=== PATIENT | female | born 1980 | race Caucasian/White ===

== ENCOUNTER 2022-10-11 13:29 | Emergency (ER) | payer BC ==
[~2022-10-11] VITALS: Ht 162.6 cm; Wt 57.8 kg
[2022-10-11 17:14] LABS: BASO % 0.1 % (0.0-1.0); HEMATOCRIT 43.1 % (36.0-47.0); HEMOGLOBIN 14.8 g/dl (12.0-15.5); LYMPH % 10.3 % (24.0-44.0); MEAN CORPUSCULAR HEMOGLOBIN 31.6 pg (27.0-33.0); MEAN CORPUSCULAR HGB CONC 34.3 g/dl (32.0-36.5); MEAN CORPUSCULAR VOLUME 91.9 fl (80.0-96.0); MONO # 0.3 10^3/uL (0.0-0.8); MONO % 3.7 % (2.0-8.0); NEUTROPHILS # 7.8 10^3/uL (1.5-8.5); NEUTROPHILS % 85.1 % (36.0-66.0); PLATELET COUNT, AUTOMATED 250 10^3/uL (150-450); RED BLOOD COUNT 4.69 10^6/uL (4.00-5.40); WHITE BLOOD COUNT 9.2 10^3/uL (4.0-10.0)
[2022-10-11 17:41] LABS: ALBUMIN 4.7 G/DL (3.2-5.2); ALKALINE PHOSPHATASE 47 U/L (46-116); ALT/SGPT 15 U/L (7.0-40); AST/SGOT 12 U/L (<34); BILIRUBIN,DIRECT 0.6 MG/DL (<0.4); BILIRUBIN,TOTAL 2.1 MG/DL (0.3-1.2); BLOOD UREA NITROGEN 18 MG/DL (9-23); CALCIUM LEVEL 9.5 MG/DL (8.5-10.1); CARBON DIOXIDE LEVEL 26 MMOL/L (20-31); CHLORIDE LEVEL 105 MMOL/L (98-107); CREATININE FOR GFR 0.66 MG/DL (0.55-1.30); GLOMERULAR FILTRATION RATE > 60.0 (>58); GLUCOSE, FASTING 109 MG/DL (60-100); POTASSIUM SERUM 4.3 MMOL/L (3.5-5.1); SODIUM LEVEL 141 MMOL/L (136-145); TOTAL PROTEIN 7.1 G/DL (5.7-8.2)
[2022-10-11 17:44] LABS: INR 0.91; PARTIAL THROMBOPLASTIN TIME 25.6 SECONDS (24.8-34.2); PROTHROMBIN TIME 12.5 SECONDS (12.5-14.5)
[2022-10-11 17:47] LABS: ERYTHROCYTE SEDIMENTATION RATE < 1 mm/hr (0-20)
[2022-10-11 17:51] LABS: D-DIMER QUANT < 270 ng/ml (<500)
[2022-10-11] MEDS ORDERED: BACITRACIN OINTMENT 30GM TUBE TOP ONE (18:15)
[2022-10-11 18:32] VITALS: BP 109/61; TEMP 98.9; O2SAT 99
== END 2022-10-11 18:47 | disposition home or self-care (01) ==
LOC: M ED 14:42
DX: L56.8 Other specified acute skin changes due to ultraviolet radiation (principal); G51.0 Bell's palsy; Z88.0 Allergy status to penicillin

== ENCOUNTER → 2023-08-25 | Outpatient (REF) | payer BC ==
[2023-08-25 17:56] LABS: APPEARANCE, URINE CLEAR (CLEAR); BACTERIA, URINE AUTO NEGATIVE (NEGATIVE); BILIRUBIN, URINE AUTO NEGATIVE (NEGATIVE); BLOOD, URINE BLOOD NEGATIVE (NEGATIVE); COLOR, URINE STRAW (YELLOW); GLUCOSE, URINE (UA) AUTO NEGATIVE (NEGATIVE); KETONE, URINE AUTO NEGATIVE (NEGATIVE); LEUKOCYTE ESTERASE, URINE AUTO NEGATIVE (NEGATIVE); NITRITE, URINE AUTO NEGATIVE (NEGATIVE); PROTEIN, URINE AUTO NEGATIVE (NEGATIVE); RBC, URINE AUTO 0 /HPF (0-3); SPECIFIC GRAVITY URINE AUTO 1.004 (1.002-1.035); SQUAMOUS EPITHELIAL CELL UR AU 0 /HPF (0-6); UROBILINOGEN, URINE AUTO 0.2 mg/dL (0.0-2.0); WBC, URINE AUTO 0 /HPF (0-3)
== END ==
LOC: M SMT 17:16
PROVIDERS: ATTEND Urology
DX: R32 Unspecified urinary incontinence (principal)

== ENCOUNTER 2023-12-01 11:38 | Day surgery (SDC) | payer BC ==
[~2023-12-01] VITALS: Ht 162.6 cm; Wt 60.8 kg
[~2023-12-01 11:38] MED LIST: CETI10CA2 PO; ceFAZolin SOD 2 GM in IV 1 EA IV ONE
[2023-12-01] MEDS ORDERED: propofoL 200 MG/20 ML VIAL As Ordered ONE (11:45)
[2023-12-01] MEDS ORDERED: MIDAZOLAM INJ 2MG/2ML VIAL As Ordered ONE (11:45)
[2023-12-01] MEDS ORDERED: ONDANSETRON 4MG 2ML VIAL As Ordered ONE (11:45)
[2023-12-01] MEDS ORDERED: fentaNYL 100 MCG/2 ML INJECTION As Ordered ONE (11:45)
[2023-12-01] MEDS ORDERED: LIDOCAINE 2% 100MG/5ML SDV (FOR ANES.) As Ordered ONE (11:45)
[2023-12-01] MEDS ORDERED: LR 1,000 ML IV SCH (12:00)
[2023-12-01] MEDS: ceFAZolin SOD 2 GM in IV 1 EA IV ONE (13:54)
[2023-12-01] MEDS ORDERED: MACR100C43 PO (14:10)
[2023-12-01 15:20] VITALS: BP 116/67; TEMP 97.2; O2SAT 100
== END 2023-12-01 15:29 | disposition home or self-care (01) ==
LOC: M SDC 11:38
PROVIDERS: ATTEND Urology
DX: N39.3 Stress incontinence (female) (male) (principal)
CPT/HCPCS: 51715; A4215; J0690; J1100; J2250; J2405; J3010; L8606

== ENCOUNTER 2024-10-11 10:13 | Day surgery (SDC) | payer BC ==
[~2024-10-11] VITALS: Ht 162.6 cm; Wt 61.2 kg
[~2024-10-11 10:13] MED LIST changes: +MACR100C43 PO; -ceFAZolin SOD 2 GM in IV 1 EA IV ONE
[2024-10-11] MEDS ORDERED: LIDOCAINE 2% 100 MG/5 ML SDV (FOR ANES.) As Ordered ONE (10:55)
[2024-10-11] MEDS: LR 1,000 ML IV SCH (11:12)
[2024-10-11] MEDS ORDERED: MIDAZOLAM INJ 2 MG/2 ML VIAL As Ordered ONE (12:13)
[2024-10-11] MEDS: ceFAZolin SOD 2 GM IV ONCE IV ONE (12:19)
[2024-10-11] MEDS ORDERED: KETOROLAC 30 MG/ML 1 ML VIAL As Ordered ONE (12:51)
[2024-10-11 13:10] VITALS: BP 100/53; TEMP 97.2; O2SAT 98
== END 2024-10-11 13:30 | disposition home or self-care (01) ==
LOC: M SDC 10:13
PROVIDERS: ATTEND Surgery
DX: D17.0 Benign lipomatous neoplasm of skin and subcutaneous tissue of head, face and neck (principal); Z88.0 Allergy status to penicillin; Z91.018 Allergy to other foods; Z79.899 Other long term (current) drug therapy
CPT/HCPCS: 21556; 88304; J0665; J0690; J1885; J2250; J3010